=== PATIENT | female | born 1950 | race Caucasian/White ===

== ENCOUNTER → 2023-10-25 09:00 | Outpatient (REF) | payer OTHER, SELFPAY | LOC: RAD 09:00 | PROVIDERS: ATTENDING PHYSICIAN Internal Medicine Rheumatology; FAMILY PHYSICIAN Internal Medicine | DX: M25.561 Pain in right knee (principal) | CPT/HCPCS: 73560; 73565 ==

== ENCOUNTER → 2024-02-05 10:23 | Outpatient (REF) | payer OTHER, SELFPAY ==
[2024-02-05 11:27] LABS: % Basophils 0.9 % (0-2); % Eosinophils 1.2 % (0-6); % Immature Granulocytes 0.3 % (0-0.5); % Lymphocytes 16.3 % (20.5-51.1); % Monocytes 8.8 % (1.7-9.3); % Neutrophils 72.5 % (42.2-75.2); Absolute Basophils 0.1 10^3/uL (0-0.2); Absolute Eosinophils 0.1 10^3/uL (0-0.7); Absolute Lymphocytes 1.5 10^3/uL (1.2-3.4); Absolute Monocytes 0.8 10^3/uL (0.1-0.6); Absolute Neutrophils 6.6 10^3/uL (1.4-6.5); Hematocrit 37.9 % (37.0-47.0); Hemoglobin 12.7 g/dL (12.0-16.0); Mean Corp Hgb Conc. 33.5 g/dL (33.0-37.0); Mean Corpuscular Hgb 31.6 pg (27.0-31.0); Mean Corpuscular Volume 94.3 fL (81.0-99.0); Mean Platelet Volume 9.8 fL (7.4-10.4); Nucleated Red Blood Cells % 0 %; Platelet Count 385 10^3/uL (130-400); Red Blood Cell Count 4.02 10^6/uL (4.20-5.40); Red Cell Dist. Width 14.2 % (11.5-14.5); White Blood Cell Count 9.1 10^3/uL (4.8-10.8)
[2024-02-05 12:35] LABS: Ferritin 39.7 ng/ml (11.1-264.0)
[2024-02-05 13:07] LABS: Folate > 20.0 ng/ml (2.76-20); Vitamin B12 517 pg/ml (239-931)
[2024-02-07 07:12] LABS: CTx 38 pg/mL
== END ==
LOC: RAD 10:23
PROVIDERS: ATTENDING PHYSICIAN Internal Medicine; REFERRING PHYSICIAN Internal Medicine Rheumatology
DX: Z87.891 Personal history of nicotine dependence (principal); E78.5 Hyperlipidemia, unspecified; R73.09 Other abnormal glucose; D64.9 Anemia, unspecified; R73.9 Hyperglycemia, unspecified; M12.811 Other specific arthropathies, not elsewhere classified, right shoulder; M25.50 Pain in unspecified joint; M25.561 Pain in right knee; M50.90 Cervical disc disorder, unspecified, unspecified cervical region; M51.37 Other intervertebral disc degeneration, lumbosacral region; M54.50 Low back pain, unspecified; M75.51 Bursitis of right shoulder; M79.641 Pain in right hand; M81.0 Age-related osteoporosis without current pathological fracture; R94.5 Abnormal results of liver function studies; Z79.899 Other long term (current) drug therapy
CPT/HCPCS: 36415; 71250; 82523; 82607; 82728; 82746; 83036; 85025

== ENCOUNTER → 2024-04-27 13:10 | Outpatient (REF) | payer OTHER, SELFPAY ==
[2024-04-27 15:16] LABS: ALT (SGPT) 17 U/L (0-35); AST (SGOT) 27 U/L (14-36); Albumin 3.9 g/dl (3.5-5.0); Alkaline Phosphatase 75 U/L (38-126); Blood Urea Nitrogen 27 mg/dl (7-17); Calcium 9.5 mg/dl (8.4-10.2); Carbon Dioxide 31 mmol/L (22-30); Chloride 93 mmol/L (98-107); Glucose 117 mg/dl (70-99); Potassium 4.4 mmol/L (3.5-5.1); Sodium 135 mmol/L (135-145); Total Bilirubin 0.3 mg/dl (0.2-1.3); Total Protein 6.5 g/dl (6.3-8.2); eGFR 59.49
== END ==
LOC: REG 13:10
PROVIDERS: ATTENDING PHYSICIAN Internal Medicine
DX: Z13.29 Encounter for screening for other suspected endocrine disorder (principal); Z13.21 Encounter for screening for nutritional disorder; Z13.228 Encounter for screening for other metabolic disorders; Z13.0 Encounter for screening for diseases of the blood and blood-forming organs and certain disorders involving the immune mechanism; E78.5 Hyperlipidemia, unspecified; R73.09 Other abnormal glucose; R73.9 Hyperglycemia, unspecified
CPT/HCPCS: 36415; 80053

== ENCOUNTER → 2024-05-28 14:19 | Outpatient (REF) | payer OTHER, SELFPAY | LOC: WDC 14:19 | PROVIDERS: ATTENDING PHYSICIAN Internal Medicine | DX: M85.80 Other specified disorders of bone density and structure, unspecified site (principal); Z12.31 Encounter for screening mammogram for malignant neoplasm of breast; M81.0 Age-related osteoporosis without current pathological fracture | CPT/HCPCS: 77063; 77067; 77080 ==

== ENCOUNTER → 2024-12-04 10:30 | Outpatient (REF) | payer OTHER, SELFPAY ==
[2024-12-04 11:57] LABS: % Basophils 0.9 % (0-2); % Eosinophils 2.6 % (0-6); % Immature Granulocytes 0.3 % (0-0.5); % Lymphocytes 18.9 % (20.5-51.1); % Monocytes 10.1 % (1.7-9.3); % Neutrophils 67.2 % (42.2-75.2); Absolute Basophils 0.1 10^3/uL (0-0.2); Absolute Eosinophils 0.2 10^3/uL (0-0.7); Absolute Lymphocytes 1.3 10^3/uL (1.2-3.4); Absolute Monocytes 0.7 10^3/uL (0.1-0.6); Absolute Neutrophils 4.5 10^3/uL (1.4-6.5); Hematocrit 36.8 % (37.0-47.0); Hemoglobin 12.2 g/dL (12.0-16.0); Mean Corp Hgb Conc. 33.2 g/dL (33.0-37.0); Mean Corpuscular Hgb 30.4 pg (27.0-31.0); Mean Corpuscular Volume 91.8 fL (81.0-99.0); Mean Platelet Volume 9.8 fL (7.4-10.4); Nucleated Red Blood Cells % 0 %; Platelet Count 334 10^3/uL (130-400); Red Blood Cell Count 4.01 10^6/uL (4.20-5.40); Red Cell Dist. Width 13.8 % (11.5-14.5); White Blood Cell Count 6.7 10^3/uL (4.8-10.8)
[2024-12-04 12:21] LABS: ALT (SGPT) 18 U/L (0-35); AST (SGOT) 28 U/L (14-36); Albumin 3.9 g/dl (3.5-5.0); Alkaline Phosphatase 65 U/L (38-126); Blood Urea Nitrogen 26 mg/dl (7-17); Calcium 9.5 mg/dl (8.4-10.2); Carbon Dioxide 29 mmol/L (22-30); Chloride 102 mmol/L (98-107); Glucose 99 mg/dl (70-99); HDL Cholesterol 65 mg/dl; LDL Cholesterol, Calculated 92 mg/dl; Potassium 4.7 mmol/L (3.5-5.1); Sodium 139 mmol/L (135-145); Total Bilirubin 0.4 mg/dl (0.2-1.3); Total Cholesterol 174 mg/dl (50-199); Total Protein 6.5 g/dl (6.3-8.2); Triglyceride 85 mg/dl (10-149); Very Low Density Lipoprotein 17 mg/dl (0-30); eGFR > 60.00
[2024-12-04 12:40] LABS: Vitamin D, 25-OH*** 48.2 ng/mL (30-80)
[2024-12-04 12:54] LABS: TSH Reflex To Free T4 2.78 uIU/ml (0.47-4.68)
[2024-12-04 14:26] LABS: Glycohemoglobin (HgbA1c) 6.3 % (4.0-5.6)
[2024-12-06 20:30] LABS: Amphetamine, Urine Negative ng/mL (Cutoff 300); Barbiturates, Urine Negative ng/mL (Cutoff 200); Benzodiazepines, Urine Negative ng/mL (Cutoff 200); Buprenorphine, Urine Negative ng/mL (Cutoff 5); Carisoprodol, Urine PresumptivePOS ng/mL (Cutoff 100); Cocaine, Urine Negative ng/mL (Cutoff 150); Creatinine, Urine 32.3 mg/dL (20.0-400.0); Ethyl Glucuronide, Urine Negative ng/mL (Cutoff 500); Fentanyl, Urine Negative ng/mL (Cutoff 1); Marijuana, Urine Negative ng/mL (Cutoff 50); Meperidine, Urine Negative ng/mL (Cutoff 200); Methadone, Urine Negative ng/mL (Cutoff 150); Opiates, Urine Negative ng/mL (Cutoff 300); Oxycodone/Oxymorphone, Urine PresumptivePOS ng/mL (Cutoff 100); PCP (Phencyclidine), Urine Negative ng/mL (Cutoff 25); Propoxyphene, Urine Negative ng/mL (Cutoff 300); Tapentadol, Urine Negative ng/mL (Cutoff 200); Tramadol, Urine Negative ng/mL (Cutoff 100); Zolpidem, Urine Negative ng/mL (Cutoff 20)
== END ==
LOC: REG 10:30
PROVIDERS: ATTENDING PHYSICIAN Internal Medicine Rheumatology; FAMILY PHYSICIAN Internal Medicine
DX: E55.9 Vitamin D deficiency, unspecified (principal); M12.811 Other specific arthropathies, not elsewhere classified, right shoulder; M17.0 Bilateral primary osteoarthritis of knee; M25.50 Pain in unspecified joint; M25.561 Pain in right knee; M50.90 Cervical disc disorder, unspecified, unspecified cervical region; M54.50 Low back pain, unspecified; M75.51 Bursitis of right shoulder; M79.641 Pain in right hand; M81.0 Age-related osteoporosis without current pathological fracture; Z79.899 Other long term (current) drug therapy; Z00.00 Encounter for general adult medical examination without abnormal findings; E78.5 Hyperlipidemia, unspecified; E03.9 Hypothyroidism, unspecified; F41.9 Anxiety disorder, unspecified; F11.20 Opioid dependence, uncomplicated; Z68.21 Body mass index [BMI] 21.0-21.9, adult
CPT/HCPCS: 36415; 80053; 80061; 80307; 82306; 83036; 84443; 85025; 86140

== ENCOUNTER → 2025-07-13 11:14 | Outpatient (REF) | payer OTHER, SELFPAY | LOC: RAD 11:14 | PROVIDERS: ATTENDING PHYSICIAN Internal Medicine | DX: Z87.891 Personal history of nicotine dependence (principal) | CPT/HCPCS: 71271 ==